=== PATIENT | female | born 1985 | race Caucasian/White ===

== ENCOUNTER 2018-06-24 21:49 | Emergency (ER) | payer SELFPAY ==
[~2018-06-24] VITALS: Ht 165.1 cm; Wt 70.0 kg
[~2018-06-24 21:49] MED LIST: ALBUTEROL SUL0.083 % INH; AUGMENTIN500 MG OR; BACTRIM DS1 TAB OR; BENADRYL 50MG C50 MG PO; CIPROFLOXACN500 MG PO; CODEINE OR; DILAUDID2 MG OR; ERY-TAB333 MG OR; GUAIFENESIN OR; LORTAB 5 OR; LORTAB 5/3255 MG PO; LORTAB 7.57.5 MG PO; MEDDOSEPAK PO; NAPROSYN500 MG OR; NAPROSYN500 MG PO; NO HOME MEDS; NO MEDS; PENICILLN VK500 MG PO; PEPCID20 MG PO; PRILOSEC20 MG PO; ROXICODONE30 MG OR; TOPIRAMATE50 MG PO; TRAMADOL HCL50 MG PO; TRAZODONE50 MG PO; ULTRAM50 MG PO; VENTOLIN HFA IN; XANAX0.5 MG OR; [UNRECOGNIZED DRUG - OTHER] PO
[2018-06-24 22:15] VITALS: BP 138/88
== END 2018-06-24 22:10 | disposition left against medical advice (07) | DRG 914 ==
LOC: ED 21:49
DX: S69.92XA Unspecified injury of left wrist, hand and finger(s), initial encounter (principal); I10 Essential (primary) hypertension; F17.210 Nicotine dependence, cigarettes, uncomplicated; W20.8XXA Other cause of strike by thrown, projected or falling object, initial encounter; Z91.19 Patient's noncompliance with other medical treatment and regimen

== ENCOUNTER 2018-07-12 09:42 | Emergency (ER) | payer SELFPAY ==
[2018-07-12] MEDS ORDERED: LOPRESSOR25 M1 PO (21:21)
== END 2018-07-12 09:50 | disposition left against medical advice (07) | DRG 951 ==
LOC: ED 09:42 → LWOBS 09:50 → ED 09:50
DX: Z91.19 Patient's noncompliance with other medical treatment and regimen (principal)

== ENCOUNTER 2018-07-12 21:08 | Emergency (ER) | payer OTHER ==
[~2018-07-12] VITALS: Ht 165.1 cm; Wt 69.5 kg
[2018-07-12] MEDS ORDERED: LOPRESSOR25 M1 PO (21:21)
[2018-07-12 23:00] VITALS: BP 130/77
== END 2018-07-12 23:01 | disposition home or self-care (01) | DRG 563 ==
LOC: ED 21:08
PROC: 2W3CX1Z Immobilization of Right Lower Arm using Splint (ICD-10-PCS; principal; 2018-07-12)
DX: S63.501A Unspecified sprain of right wrist, initial encounter (principal); S66.811A Strain of other specified muscles, fascia and tendons at wrist and hand level, right hand, initial encounter; V49.49XA Driver injured in collision with other motor vehicles in traffic accident, initial encounter; Y92.413 State road as the place of occurrence of the external cause

== ENCOUNTER 2018-07-18 07:40 | Emergency (ER) | payer SELFPAY ==
[~2018-07-18] VITALS: Ht 165.1 cm; Wt 60.0 kg
[~2018-07-18 07:40] MED LIST changes: +LOPRESSOR25 M1 PO
[2018-07-18 08:32] LABS: URINE BILIRUBIN - DIPSTICK NEGATIVE (NEGATIVE); URINE BLOOD DIPSTICK NEGATIVE (NEGATIVE); URINE COLOR YELLOW; URINE GLUCOSE - DIPSTICK NEGATIVE (NEGATIVE); URINE KETONE NEGATIVE (NEGATIVE); URINE PROTEIN - DIPSTICK TRACE mg/dL (NEG-TRACE); URINE UROBILINOGEN - DIPSTICK 0.2 E.U./dL (0.2)
[2018-07-18 08:36] LABS: URINE LEUK ESTERASE SMALL (NEGATIVE); URINE NITRITE - DIPSTICK POSITIVE (Negative)
[2018-07-18 08:39] LABS: BARBITURATES NEGATIVE (NEGATIVE); COCAINE NEGATIVE (NEGATIVE); METHADONE NEGATIVE (NEGATIVE); OXCYCODONE POSITIVE (NEGATIVE); TETRAHYDROCANNABIONOL NEGATIVE (NEGATIVE); TRICYLIC ANTIDEPRESSANTS NEGATIVE (NEGATIVE)
[2018-07-18 08:45] LABS: URINE BACTERIA MODERATE hpf; URINE SQUAMOUS EPITHELIAL CELL FEW EPI/hpf (0-FEW); URINE WBC TNTC WBC/hpf (0-5)
[2018-07-18 09:03] LABS: HEMATOCRIT 44.1 % (37.0-47.0); HEMOGLOBIN 13.7 g/dl (12.0-16.0); IMMATURE GRANULOCYTES 0.5 % (0.0-5.0); MEAN CORPUSCULAR HGB 32.4 pG CALC (26.0-32.0); MEAN CORPUSCULAR HGB CONC 31.1 g/L CALC (32.0-36.0); NEUT# 4.58 thou/uL (2.00-7.15); RED BLOOD COUNT 4.23 mill/uL (4.20-5.60); RED CELL DISTRI WIDTH 12.5 % (11.5-15.5)
[2018-07-18 09:20] LABS: MEAN CELL VOLUME 104.3 fL CALC (80.0-100.0)
[2018-07-18] MEDS ORDERED: DICLOFENAC50 MG PO (10:00)
[2018-07-18] MEDS ORDERED: KEFLEX500 M1 PO (10:00)
[2018-07-18 10:03] VITALS: BP 128/76
== END 2018-07-18 10:14 | disposition home or self-care (01) | DRG 690 ==
LOC: ED 07:40
PROVIDERS: Emergency Medicine
DX: N39.0 Urinary tract infection, site not specified (principal); B96.20 Unspecified Escherichia coli [E. coli] as the cause of diseases classified elsewhere; R30.0 Dysuria; F11.90 Opioid use, unspecified, uncomplicated; F15.90 Other stimulant use, unspecified, uncomplicated; F17.200 Nicotine dependence, unspecified, uncomplicated

== ENCOUNTER 2019-07-19 17:41 | Emergency (ER) | payer SELFPAY ==
[~2019-07-19] VITALS: Ht 165.1 cm; Wt 68.0 kg
[~2019-07-19 17:41] MED LIST changes: +DICLOFENAC50 MG PO; +KEFLEX500 M1 PO
[2019-07-19 19:11] LABS: HEMATOCRIT 38.4 % (37.0-47.0); HEMOGLOBIN 12.6 g/dl (12.0-16.0); IMMATURE GRANULOCYTES 0.3 % (0.0-5.0); MEAN CORPUSCULAR HGB 30.5 pG CALC (26.0-32.0); MEAN CORPUSCULAR HGB CONC 32.8 g/L CALC (32.0-36.0); NEUT# 1.47 thou/uL (2.00-7.15); RED BLOOD COUNT 4.13 mill/uL (4.20-5.60); RED CELL DISTRI WIDTH 12.2 % (11.5-15.5)
[2019-07-19 19:33] LABS: ALBUMIN 4.3 g/dL (3.2-5.0); ALKALINE PHOSPHATASE 91 u/l (38-126); AMYLASE 76 u/l (30-110); ANION GAP 12 (6-22 (CALC)); BILIRUBIN, TOTAL 0.4 mg/dL (0.0-1.4); BUN 16 mg/dL (7-17); BUN/CREATININE RATIO 19 (12-20 (CALC)); CARBON DIOXIDE 26 mmol/l (22-30); CHLORIDE 103 mmol/l (95-108); CREATININE 0.8 mg/dL (0.5-1.0); GFR > 60 ML/MIN (>=60 (CALC)); GFR FOR AFR.AMER. > 60 ML/MIN (>=60 (CALC)); LIPASE 77 u/l (23-300); POTASSIUM 4.8 mmol/l (3.5-5.1); SGOT/AST 94 u/l (14-36); SODIUM 137 mmol/l (137-146); TOTAL PROTEIN 7.8 g/dL (6.3-8.2)
[2019-07-19 21:03] VITALS: BP 140/92
[2019-07-19] MEDS ORDERED: BENADRYL 50MG C50 MG PO (21:05)
== END 2019-07-19 21:13 | disposition home or self-care (01) | DRG 607 ==
LOC: ED 17:41
PROVIDERS: Emergency Medicine
DX: R21 Rash and other nonspecific skin eruption (principal); F17.210 Nicotine dependence, cigarettes, uncomplicated

== ENCOUNTER 2019-11-22 | Emergency (ER) | payer SELFPAY ==
[2019-11-22 05:33] LABS: ALBUMIN 3.6 g/dL (3.2-5.0); BILIRUBIN, TOTAL 0.5 mg/dL (0.0-1.4); BUN 9 mg/dL (7-17); BUN/CREATININE RATIO 11 (12-20 (CALC)); CARBON DIOXIDE 26 mmol/l (22-30); CHLORIDE 102 mmol/l (95-108); COCAINE NEGATIVE (NEGATIVE); CREATININE 0.8 mg/dL (0.5-1.0); GFR > 60 ML/MIN (>=60 (CALC)); GFR FOR AFR.AMER. > 60 ML/MIN (>=60 (CALC)); SODIUM 135 mmol/l (137-146); TETRAHYDROCANNABIONOL NEGATIVE (NEGATIVE); TOTAL PROTEIN 6.6 g/dL (6.3-8.2)
[2019-11-22 05:34] LABS: BARBITURATES NEGATIVE (NEGATIVE); METHADONE NEGATIVE (NEGATIVE); OXCYCODONE POSITIVE (NEGATIVE); TRICYLIC ANTIDEPRESSANTS NEGATIVE (NEGATIVE)
[2019-11-22 05:49] LABS: ALKALINE PHOSPHATASE 140 u/l (38-126); ANION GAP 11 (6-22 (CALC)); POTASSIUM 3.6 mmol/l (3.5-5.1); SGOT/AST 274 u/l (14-36)
[2019-11-22 06:54] LABS: URINE BILIRUBIN - DIPSTICK NEGATIVE (NEGATIVE); URINE BLOOD DIPSTICK NEGATIVE (NEGATIVE); URINE CLARITY CLEAR; URINE COLOR YELLOW; URINE GLUCOSE - DIPSTICK NEGATIVE (NEGATIVE); URINE KETONE NEGATIVE (NEGATIVE); URINE LEUK ESTERASE TRACE (Negative); URINE NITRITE - DIPSTICK NEGATIVE (Negative); URINE PH 5.5 (4.5-8.0); URINE PROTEIN - DIPSTICK NEGATIVE (NEG-TRACE); URINE SPECIFIC GRAVITY 1.025; URINE UROBILINOGEN - DIPSTICK 0.2 E.U./dL (0.2)
--- NOTE | 2019-11-23 08:57 | NUR ---
COVID results called to patient with confirmation of name and . States she is still hurting when she is urinating and thought she was supposed to get a prescription for a UTI but didn't. Encouraged her to return to the ED for assessment and possible treatment.
== END 2019-11-22 07:45 | disposition home or self-care (01) | DRG 153 ==
PROVIDERS: Emergency Medicine
DX: J06.9 Acute upper respiratory infection, unspecified (principal); I10 Essential (primary) hypertension; F19.10 Other psychoactive substance abuse, uncomplicated; F17.210 Nicotine dependence, cigarettes, uncomplicated; Z20.828 Contact with and (suspected) exposure to other viral communicable diseases

== ENCOUNTER 2022-04-28 09:10 | Emergency (ER) | payer SELFPAY ==
[~2022-04-28] VITALS: Ht 165.1 cm; Wt 63.6 kg
[2022-04-28] VITALS (12 sets, daily range): BP systolic 109–138; BP diastolic 74–87
[2022-04-28 10:18] LABS: URINE BLOOD DIPSTICK SMALL (NEGATIVE); URINE COLOR YELLOW; URINE GLUCOSE - DIPSTICK NEGATIVE (NEGATIVE); URINE KETONE NEGATIVE (NEGATIVE); URINE LEUK ESTERASE NEGATIVE (NEGATIVE); URINE PROTEIN - DIPSTICK NEGATIVE (NEG-TRACE); URINE SPECIFIC GRAVITY >=1.030
[2022-04-28 10:28] LABS: URINE BILIRUBIN - DIPSTICK SMALL (NEGATIVE); URINE NITRITE - DIPSTICK NEGATIVE (Negative)
[2022-04-28 10:42] LABS: ALBUMIN 4.1 g/dL (3.2-5.0); ALKALINE PHOSPHATASE 122 u/l (38-126); AMYLASE 71 u/l (30-110); ANION GAP 13 (6-22 (CALC)); BILIRUBIN, TOTAL 0.3 mg/dL (0.0-1.4); BUN 11 mg/dL (7-17); BUN/CREATININE RATIO 14 (12-20 (CALC)); CARBON DIOXIDE 29 mmol/l (22-30); CHLORIDE 98 mmol/l (95-108); CREATININE 0.8 mg/dL (0.5-1.0); GFR FOR AFR.AMER. > 60 ML/MIN (>=60 (CALC)); GFR OTHER RACES > 60 ML/MIN (>=60 (CALC)); LIPASE 38 u/l (23-300); POTASSIUM 4.5 mmol/l (3.5-5.1); SGOT/AST 53 u/l (14-36); SODIUM 135 mmol/l (137-146); TOTAL PROTEIN 7.3 g/dL (6.3-8.2)
[2022-04-28 10:43] LABS: URINE EPITHELIAL CELLS FEW EPI/hpf (0-FEW); URINE RBC 0-2 RBC/hpf (0-5)
[2022-04-28 10:55] LABS: HEMATOCRIT 40.7 % (37.0-47.0); HEMOGLOBIN 13.5 g/dl (12.0-16.0); IMMATURE GRANULOCYTES 0.1 % (0.0-5.0); MEAN CELL VOLUME 92.3 fL CALC (80.0-100.0); MEAN CORPUSCULAR HGB 30.6 pG CALC (26.0-32.0); MEAN CORPUSCULAR HGB CONC 33.2 g/dL CAL (32.0-36.0); NEUT# 5.23 thou/uL (2.00-7.15); RED BLOOD COUNT 4.41 mill/uL (4.20-5.60); RED CELL DISTRI WIDTH 13.2 % (11.5-15.5)
[2022-04-28] MEDS ORDERED: MIRALAX17 GM PO (13:17)
== END 2022-04-28 13:33 | disposition home or self-care (01) | DRG 392 ==
LOC: ED 09:10
PROVIDERS: Emergency Medicine
DX: K59.00 Constipation, unspecified (principal); I10 Essential (primary) hypertension; F17.210 Nicotine dependence, cigarettes, uncomplicated; Z20.822 Contact with and (suspected) exposure to COVID-19
CPT/HCPCS: Q9967

== ENCOUNTER 2023-07-30 16:53 | Emergency (ER) | payer SELFPAY ==
[~2023-07-30] VITALS: Ht 165.1 cm; Wt 63.0 kg
[2023-07-30] VITALS (8 sets, daily range): BP systolic 124–136; BP diastolic 74–92
[~2023-07-30 16:53] MED LIST changes: +MIRALAX17 GM PO
[2023-07-30 18:10] LABS: BASO% 0.2 % (0-3); EOS% 0.1 % (0-8); HEMATOCRIT 39.9 % (37.0-47.0); HEMOGLOBIN 12.7 g/dl (12.0-16.0); IMMATURE GRANULOCYTES 0.4 % (0.0-5.0); LYMPH% 7.5 % (15-41); MEAN CELL VOLUME 91.1 fL CALC (80.0-100.0); MEAN CORPUSCULAR HGB CONC 31.8 g/dL CAL (32.0-36.0); MONO% 9.4 % (2-13); NEUT# 7.93 thou/uL (2.00-7.15); NEUT% 82.4 % (42-76); RED BLOOD COUNT 4.38 mill/uL (4.20-5.60); RED CELL DISTRI WIDTH 13.5 % (11.5-15.5)
[2023-07-30 18:17] LABS: ALBUMIN 3.9 g/dL (3.2-5.0); ALKALINE PHOSPHATASE 138 u/l (38-126); ANION GAP 13 (6-22 (CALC)); BUN 8 mg/dL (7-17); BUN/CREATININE RATIO 13 (12-20 (CALC)); CARBON DIOXIDE 26 mmol/l (22-30); CHLORIDE 99 mmol/l (95-108); CREATININE 0.6 mg/dL (0.5-1.0); GFR FOR AFR.AMER. > 60 ML/MIN (>=60 (CALC)); GFR OTHER RACES > 60 ML/MIN (>=60 (CALC)); LIPASE 20 u/l (23-300); POTASSIUM 3.8 mmol/l (3.5-5.1); SGOT/AST 63 u/l (14-36); SODIUM 133 mmol/l (137-146); TOTAL PROTEIN 7.4 g/dL (6.3-8.2)
[2023-07-30 18:22] LABS: BILIRUBIN, TOTAL 1.1 mg/dL (0.02-1.3)
[2023-07-30] MEDS ORDERED: VIBRAMYCIN100 M2 PO (20:40)
== END 2023-07-30 21:18 | disposition home or self-care (01) | DRG 195 ==
LOC: ED 16:53
PROVIDERS: Nurse Practitioner
DX: J18.9 Pneumonia, unspecified organism (principal); F19.10 Other psychoactive substance abuse, uncomplicated; I10 Essential (primary) hypertension; F17.210 Nicotine dependence, cigarettes, uncomplicated; Z20.822 Contact with and (suspected) exposure to COVID-19
CPT/HCPCS: Q9967

== ENCOUNTER 2023-08-07 00:30 | Observation (INO) | payer SELFPAY ==
[2023-08-07] VITALS (20 sets, daily range): BP systolic 86–160; BP diastolic 41–123
[~2023-08-07] VITALS: Ht 165.1 cm; Wt 50.6 kg
[~2023-08-07 00:30] MED LIST changes: +VIBRAMYCIN100 M2 PO
[2023-08-07 05:18] LABS: BASO% 0.2 % (0-3); HEMATOCRIT 26.3 % (37.0-47.0); HEMOGLOBIN 8.7 g/dl (12.0-16.0); IMMATURE GRANULOCYTES 0.4 % (0.0-5.0); LYMPH% 12.1 % (15-41); MEAN CELL VOLUME 88.3 fL CALC (80.0-100.0); MEAN CORPUSCULAR HGB 29.2 pG CALC (26.0-32.0); MEAN CORPUSCULAR HGB CONC 33.1 g/dL CAL (32.0-36.0); MONO% 9.5 % (2-13); NEUT# 3.53 thou/uL (2.00-7.15); NEUT% 77.8 % (42-76); RED BLOOD COUNT 2.98 mill/uL (4.20-5.60); RED CELL DISTRI WIDTH 14.4 % (11.5-15.5)
[2023-08-07 05:33] LABS: ALKALINE PHOSPHATASE 147 u/l (38-126); ANION GAP 12 (6-22 (CALC)); BILIRUBIN, TOTAL 0.9 mg/dL (0.02-1.3); BUN 11 mg/dL (7-17); BUN/CREATININE RATIO 17 (12-20 (CALC)); CARBON DIOXIDE 23 mmol/l (22-30); CHLORIDE 98 mmol/l (95-108); CREATININE 0.7 mg/dL (0.5-1.0); GFR FOR AFR.AMER. > 60 ML/MIN (>=60 (CALC)); GFR OTHER RACES > 60 ML/MIN (>=60 (CALC)); POTASSIUM 3.5 mmol/l (3.5-5.1); SGOT/AST 56 u/l (14-36); SODIUM 129 mmol/l (137-146); TOTAL PROTEIN 6.1 g/dL (6.3-8.2)
[2023-08-07 05:38] LABS: ALBUMIN 2.8 g/dL (3.2-5.0)
[2023-08-07 08:51] LABS: URINE BLOOD DIPSTICK Negative (NEGATIVE); URINE GLUCOSE - DIPSTICK Negative (NEGATIVE); URINE KETONE Negative (NEGATIVE); URINE LEUK ESTERASE Negative (NEGATIVE); URINE NITRITE - DIPSTICK Negative (Negative); URINE PH 5.5 (4.5-8.0); URINE PROTEIN - DIPSTICK 30 mg/dL (NEG-TRACE)
[2023-08-07 08:56] LABS: URINE COLOR Dark yellow
[2023-08-07 08:58] LABS: URINE RBC 0-2 RBC/hpf (0-5); URINE SQUAMOUS EPITHELIAL CELL MODERATE EPI/hpf (0-FEW); URINE WBC 0-2 WBC/hpf (0-5)
[2023-08-07 19:38] LABS: HEMATOCRIT 24.9 % (37.0-47.0); HEMOGLOBIN 8.1 g/dl (12.0-16.0); MEAN CELL VOLUME 89.2 fL CALC (80.0-100.0); MEAN CORPUSCULAR HGB CONC 32.5 g/dL CAL (32.0-36.0); RED BLOOD COUNT 2.79 mill/uL (4.20-5.60); RED CELL DISTRI WIDTH 14.3 % (11.5-15.5)
[2023-08-07 19:50] LABS: BUN 11 mg/dL (7-17); BUN/CREATININE RATIO 20 (12-20 (CALC)); CARBON DIOXIDE 20 mmol/l (22-30); CHLORIDE 105 mmol/l (95-108); CREATININE 0.5 mg/dL (0.5-1.0); GFR FOR AFR.AMER. > 60 ML/MIN (>=60 (CALC)); GFR OTHER RACES > 60 ML/MIN (>=60 (CALC))
[2023-08-07 20:01] LABS: ANION GAP 14 (6-22 (CALC)); SODIUM 136 mmol/l (137-146)
[2023-08-08 00:08] VITALS: BP 112/71
[2023-08-08 05:01] VITALS: BP 117/74
[2023-08-08 06:34] VITALS: BP 105/62
[2023-08-08 06:47] LABS: BASO% 0.4 % (0-3); EOS% 0.6 % (0-8); HEMATOCRIT 25.5 % (37.0-47.0); HEMOGLOBIN 8.5 g/dl (12.0-16.0); IMMATURE GRANULOCYTES 0.4 % (0.0-5.0); LYMPH% 14.2 % (15-41); MEAN CELL VOLUME 89.2 fL CALC (80.0-100.0); MEAN CORPUSCULAR HGB 29.7 pG CALC (26.0-32.0); MEAN CORPUSCULAR HGB CONC 33.3 g/dL CAL (32.0-36.0); MONO% 9.6 % (2-13); NEUT# 3.73 thou/uL (2.00-7.15); NEUT% 74.8 % (42-76); RED BLOOD COUNT 2.86 mill/uL (4.20-5.60); RED CELL DISTRI WIDTH 14.2 % (11.5-15.5)
[2023-08-08 06:58] LABS: ALBUMIN 2.3 g/dL (3.2-5.0); ALKALINE PHOSPHATASE 125 u/l (38-126); ANION GAP 8 (6-22 (CALC)); BUN 10 mg/dL (7-17); BUN/CREATININE RATIO 18 (12-20 (CALC)); CALCULATED LDLCHOLESTEROL 47 mg/dL (62-129 (CALC)); CARBON DIOXIDE 24 mmol/l (22-30); CHLORIDE 109 mmol/l (95-108); CHOLESTEROL HDL RATIO 9.3 (<4.4 (CALC)); CREATININE 0.5 mg/dL (0.5-1.0); GFR FOR AFR.AMER. > 60 ML/MIN (>=60 (CALC)); GFR OTHER RACES > 60 ML/MIN (>=60 (CALC)); HDL CHOLESTEROL 10 mg/dL (39.0-59.0); MAGNESIUM 1.8 mg/dL (1.6-2.3); POTASSIUM 3.6 mmol/l (3.5-5.1); SGOT/AST 44 u/l (14-36); SODIUM 138 mmol/l (137-146); TOTAL CHOLESTEROL 90 mg/dl (0-199); TOTAL PROTEIN 5.4 g/dL (6.3-8.2); TOTAL TRIGLYCERIDES 166 mg/dl (0-149); VLDL CHOLESTROL 33 mg/dl (1-41 (CALC))
[2023-08-08 07:19] LABS: BILIRUBIN, TOTAL 0.4 mg/dL (0.02-1.3); C-REACTIVE PROTEIN 15.5 mg/dL (0-0.9)
[2023-08-08 11:05] VITALS: BP 116/71
== END 2023-08-08 15:35 | disposition short-term general hospital (02) | DRG 871 ==
LOC: ED 00:30 → ED-I 07:00 → ED 07:39 → MS2 07:40 → ICU 07:40 → MS2 16:26
PROVIDERS: Family Medicine; ADMIT Student in an Organized Health Care Education/Training Program; ATTEND Student in an Organized Health Care Education/Training Program
PROC: 02HV33Z Insertion of Infusion Device into Superior Vena Cava, Percutaneous Approach (ICD-10-PCS; principal; 2023-08-07)
PROC: B518ZZA Fluoroscopy of Superior Vena Cava, Guidance (ICD-10-PCS; 2023-08-07)
DX: A41.01 Sepsis due to Methicillin susceptible Staphylococcus aureus (principal); I33.0 Acute and subacute infective endocarditis; L08.9 Local infection of the skin and subcutaneous tissue, unspecified; D64.9 Anemia, unspecified; I10 Essential (primary) hypertension; F19.10 Other psychoactive substance abuse, uncomplicated; Z87.891 Personal history of nicotine dependence
CPT/HCPCS: G0378; J1650; J3370; J3475

== ENCOUNTER 2024-07-26 18:12 | Emergency (ER) | payer OTHER ==
[~2024-07-26] VITALS: Ht 165.1 cm; Wt 66.2 kg
[~2024-07-26 18:12] MED LIST changes: +ZUBSOLV SUB
[2024-07-26 18:23] VITALS: BP 139/86
[2024-07-26 18:33] VITALS: BP 131/65
[2024-07-26] MEDS ORDERED: LACTULOSE 20 GM/30 ML UDC PO ONE (19:40)
[2024-07-26] MEDS ORDERED: KRISTALOSE20 GM PO (19:48)
[2024-07-26] MEDS ORDERED: LINZESS290 MCG PO (19:48)
[2024-07-26 20:09] VITALS: BP 131/65
== END 2024-07-26 20:10 | disposition home or self-care (01) ==
LOC: ED 18:12
DX: K59.00 Constipation, unspecified (principal); I10 Essential (primary) hypertension; F17.200 Nicotine dependence, unspecified, uncomplicated; Z87.19 Personal history of other diseases of the digestive system

== ENCOUNTER 2024-09-15 08:48 | Emergency (ER) | payer OTHER ==
[~2024-09-15] VITALS: Ht 165.1 cm; Wt 65.0 kg
[~2024-09-15 08:48] MED LIST changes: +KRISTALOSE20 GM PO; +LINZESS290 MCG PO
[2024-09-15 08:53] VITALS: BP 135/81
[2024-09-15 09:00] VITALS: BP 103/71
[2024-09-15 09:30] VITALS: BP 109/57
[2024-09-15 10:00] VITALS: BP 120/71
[2024-09-15] MEDS ORDERED: MEDDOSEPAK PO (10:16)
[2024-09-15 10:36] VITALS: BP 120/71
== END 2024-09-15 10:42 | disposition home or self-care (01) ==
LOC: ED 08:48
DX: B34.9 Viral infection, unspecified (principal); I10 Essential (primary) hypertension; F17.200 Nicotine dependence, unspecified, uncomplicated; Z20.822 Contact with and (suspected) exposure to COVID-19
CPT/HCPCS: J1100

== ENCOUNTER 2024-10-11 12:41 | Emergency (ER) | payer OTHER ==
[~2024-10-11] VITALS: Ht 165.1 cm; Wt 65.0 kg
[2024-10-11] MEDS ORDERED: LINZESS145 MCG PO (13:02)
[2024-10-11] MEDS ORDERED: OMEPRAZOLE DR20 MG PO (13:03)
[2024-10-11 13:09] VITALS: BP 108/74
[2024-10-11] MEDS ORDERED: KETOROLAC TROMETHAMINE 30 MG/ML SDV IM ONE (13:30)
[2024-10-11] MEDS ORDERED: METHOCARBAMOL 500 MG/TAB PO ONE (13:30)
[2024-10-11 13:32] VITALS: BP 139/70
[2024-10-11 15:04] LABS: BASO% 0.3 % (0-3); EOS% 1.3 % (0-8); LYMPH% 25.3 % (15-41); MEAN CORPUSCULAR HGB 31.5 pG CALC (26.0-32.0); MEAN CORPUSCULAR HGB CONC 31.9 g/dL CAL (32.0-36.0); NEUT# 2.41 thou/uL (2.00-7.15); NEUT% 64.1 % (42-76); RED BLOOD COUNT 4.26 mill/uL (4.20-5.60); RED CELL DISTRI WIDTH 12.9 % (11.5-15.5)
[2024-10-11 15:16] LABS: HEMOGLOBIN 13.4 g/dl (12.0-16.0); MEAN CELL VOLUME 98.6 fL CALC (80.0-100.0)
[2024-10-11 15:21] LABS: ALBUMIN 4.1 g/dL (3.2-5.0); BILIRUBIN, TOTAL 0.8 mg/dL (0.02-1.3); CREATININE 0.7 mg/dL (0.5-1.0); POTASSIUM 4.8 mmol/l (3.5-5.1); TOTAL PROTEIN 7.1 g/dL (6.3-8.2)
[2024-10-11] MEDS ORDERED: cefTRIAXone SODIUM 2 GM in SODIUM CHLORIDE 0.9% 100 ML IV ONE (15:50)
[2024-10-11] MEDS ORDERED: LIDOcaine HCl 1% (Local Anesth.) 20 ML VIAL IM STA (16:38)
[2024-10-11] MEDS ORDERED: cefTRIAXone SODIUM 2 GM/VIAL SDV IM ONE (16:40)
[2024-10-11 16:48] VITALS: BP 139/61
[2024-10-11 16:54] VITALS: BP 139/61
== END 2024-10-11 16:55 | disposition short-term general hospital (02) ==
LOC: ED 12:41
PROVIDERS: Family Medicine
DX: M51.370 Other intervertebral disc degeneration, lumbosacral region with discogenic back pain only (principal); D72.819 Decreased white blood cell count, unspecified; I10 Essential (primary) hypertension; F17.200 Nicotine dependence, unspecified, uncomplicated
CPT/HCPCS: J0696